=== PATIENT | male | born 1970 | race Caucasian/White ===

== ENCOUNTER → 2016-10-08 | Outpatient (CLI) | payer BC ==
[2016-10-08 20:04] LABS: Basophils # (A) 0.1 k/uL (0-0.2); Basophils % (A) 2 %; CH 29.3; CHCM 34.5; Eosinophils # (A) 0.1 k/uL (0-0.7); Eosinophils % (A) 1 %; HCT 48.6 % (39.0-53.0); HDW 2.62; HGB 16.2 gm/dL (13.0-17.5); Luc # (Auto) 0.06; Luc % (Auto) 1; Lymphocytes # (A) 1.9 k/uL (1.0-4.8); Lymphocytes % (A) 31 %; MCH 28.4 pg (25.0-35.0); MCHC 33.3 g/dL (31.0-37.0); MCV 85.3 fL (80.0-100.0); Monocytes # (A) 0.4 k/uL (0-1.0); Monocytes % (A) 7 %; Neutrophils # (A) 3.7 k/uL (1.3-7.7); Neutrophils % (A) 59 %; RDW 12.2 % (11.5-15.5); WBC 6.3 k/uL (3.8-10.6); WBC (Perox) 6.33
[2016-10-08 20:09] LABS: ALT 59 U/L (21-72); AST 29 U/L (17-59); Alkaline Phosphatase 112 U/L (38-126); Anion Gap 12 mmol/L; Blood Urea Nitrogen 15 mg/dL (9-20); Calcium 10.1 mg/dL (8.4-10.2); Carbon Dioxide 24 mmol/L (22-30); Chloride 106 mmol/L (98-107); Glucose 90 mg/dL (74-99); Non-African American GFR(MDRD) >60 (>60 ml/min/1.73 sqM); Potassium 4.2 mmol/L (3.5-5.1); Sodium 142 mmol/L (137-145); Total Bilirubin 0.6 mg/dL (0.2-1.3); Total Protein 7.4 g/dL (6.3-8.2)
== END | disposition home or self-care (01) ==
LOC: MMGSC 14:27
PROVIDERS: ATTEND Family Medicine
DX: R53.83 Other fatigue (principal); R07.9 Chest pain, unspecified
CPT/HCPCS: 36415; 80053; 84439; 84443; 85025; 85379

== ENCOUNTER 2018-12-12 10:20 | Emergency (ER) | payer BC ==
[2018-12-12 10:29] VITALS: BP 131/84; PULSE 66; RESP 18; TEMP 98
--- NOTE | 2018-12-12 10:48 | ED ---
Lower Extremity Injury HPI - General Chief Complaint: Extremity Injury, Lower Stated Complaint: slip & fall/leg pain Time Seen by Provider: 12/12/18 10:33 Source: patient Mode of arrival: ambulatory Limitations: no limitations - History of Present Illness Initial Comments: 48-year-old male presenting today for chief complaint of left knee ankle and foot pain. Patient states that he slipped on ice yesterday with his left lower extremity under his body. Patient states he twisted it inward. Patient denies a dislocation. Patient states he noted pain at the knee, he states it felt similar to when he had a meniscus injury in the past. He states he went home and was able to ambulate without difficulty. He attempted to ice and elevate area however when pain persisted this morning he presented for evaluation. Upon arrival patient is ambulatory, he denies any numbness tingling or loss sensation: Was or pallor of the extremity. Patient denies hitting his head loss of consciousness or injury to the neck or back. Remaining review of systems negative, patient denies any recent fever, chills, shortness of breath, chest pain, back pain, abdominal pain, nausea or vomiting, numbness or tingling, dysuria or hematuria, constipation or diarrhea, headaches or visual changes, or any other complaints. upon arrival patient appears well, VS within acceptable limits. - Related Data Home Medications Medication Instructions Recorded Confirmed Loratadine [Claritin] 10 mg PO DAILY 12/21/15 12/12/18 Omeprazole [PriLOSEC] 20 mg PO AC-BRKFST 12/21/15 12/12/18 Allergies Allergy/AdvReac Type Severity Reaction Status Date / Time No Known Allergies Allergy Verified 12/12/18 10:44 Review of Systems ROS Statement: Those systems with pertinent positive or pertinent negative responses have been documented in the HPI. ROS Other: All systems not noted in ROS Statement are negative. Past Medical History Past Medical History: GERD/Reflux Additional Past Medical History / Comment(s): back pain, seasonal ALLERGIES History of Any Multi-Drug Resistant Organisms: None Reported Past Surgical History: Orthopedic Surgery Additional Past Surgical History / Comment(s): Right knee arthroscopic meniscus tear repair, tendon repair right ankle Past Psychological History: No Psychological Hx Reported Smoking Status: Never smoker Past Alcohol Use History: None Reported Past Drug Use History: None Reported - Past Family History Father Additional Family Medical History / Comment(s): Father is alive at age 85 with history of 3 myocardial infarctions in the past 20 years and chronic kidney problems. Mother Additional Family Medical History / Comment(s): Mother is alive at age 80 with history of neuropathy. No coronary artery disease history. Brother(s) Additional Family Medical History / Comment(s): He has 2 brothers and 2 sisters with no major medical problems. Patient has 2 children with no major medical problems. General Exam - General Exam Comments Initial Comments: General: The patient is awake and alert, in no distress, and does not appear acutely ill. Eye: +3 mm pupils are equal, round and reactive to light, extra-ocular movements are intact. No nystagmus. There is normal conjunctiva bilaterally. No signs of icterus. Ears, nose, mouth and throat: There are moist mucous membranes and no oral lesions. Neck: The neck is supple, there is no tenderness or JVD. Cardiovascular: There is a regular rate and rhythm. No murmur, rub or gallop is appreciated. Respiratory: Lungs are clear to auscultation, respirations are non-labored, breath sounds are equal. No wheezes, stridor, rales, or rhonchi. Gastrointestinal: Soft, non-distended, non-tender abdomen without masses or organomegaly noted. There is no rebound or guarding present. Musculoskeletal: Upon inspection of the lower extremities there is no soft tissue swelling or ecchymosis abrasions of the knees. There are equal comparison. No point tenderness on examination. Patient is able to fully range at the knees and ankles and hips bilaterally equal in comparison. Patient does admit to tenderness with range of motion at the right knee and ankle. Patient is tender over the lateral malleolus. No obvious soft tissue swelling no deformity. Strength 5/5 of the LE including affected joints. Sensation intact of the LE equal in comparison b/l. Radial and DP pulses equal bilaterally 2+. Capillary refilll < 2 seconds. No evidence of foot drop. Especially the left wrist reveals no abnormality. Patient able to fully range including supination and pronation. No point localized tenderness to palpation. No wrist drop- ulnar median and radial nerve appear intact. Neurological: A&O x 3. CN II-XII intact, There are no obvious motor or sensory deficits. Coordination appears grossly intact. Speech is normal. Skin: Skin is warm and dry and no rashes or lesions are noted. Psychiatric: Cooperative, appropriate mood & affect, normal judgment. Limitations: no limitations Course Vital Signs 12/12/18 10:27 Temperature 98 F Pulse Rate 66 Respiratory 18 Rate Blood Pressure 131/84 O2 Sat by Pulse 99 Oximetry Medical Decision Making - Medical Decision Making Imaging studies reveal no acute osseous injury. I do suspicion for possible left meniscus injury. Patient has no stated skin soft tissue swelling or abnormal physical examination findings of the ankle- feel most likely sprain. Patient has no tenderness over Lis Franc region, (-)XR. No ecchymosis of forefoot or plantar surface. Patient will be placed in knee immobilizer. Patient is to follow-up with established orthopedic care with Dr. Krishnamurthy. Patient is aware of return parameters denies questions at this time. Patient given ibuprofen for pain management and discharged in stable condition after discussing case and reviewing imaging studies attending provider Dr. Mccord. Disposition Clinical Impression: Fall due to ice or snow, Knee pain, Ankle pain Disposition: HOME SELF-CARE Condition: Good Instructions (If sedation given, give patient instructions): Ankle Sprain (ED), Knee Sprain (ED) Additional Instructions: Please use medication as discussed. Please follow-up with family doctor in the next 2 days, please follow up with Dr. Krishnamurthy in next week. Please return to emergency room if the symptoms increase or worsen or for any other concerns. Is patient prescribed a controlled substance at d/c from ED?: No Referrals: Apple Cifuentes MD [Primary Care Provider] - 1-2 days Jean Krishnamurthy MD [STAFF PHYSICIAN] - 1-2 days Time of Disposition: 11:13
--- NOTE | 2018-12-12 11:08 | XR ---
Left foot and left ankle HISTORY: Trauma and pain 3 views of the left ankle and 3 views of the left foot Bone mineralization, joint spaces and alignment are maintained. Soft tissue calcifications are likely vascular. IMPRESSION: No fracture or dislocation.
--- NOTE | 2018-12-12 11:09 | XR ---
Left knee HISTORY: Trauma and pain 3 views of the left knee Bone mineralization, joint spaces and alignment are maintained. No joint effusion. IMPRESSION: No fracture or dislocation.
[2018-12-12] MEDS ORDERED: IBUPROFEN 600 MG TAB PO STA (11:18)
== END 2018-12-12 11:43 | disposition home or self-care (01) ==
LOC: EC 10:20
DX: M25.562 Pain in left knee (principal); M25.572 Pain in left ankle and joints of left foot; M79.672 Pain in left foot; K21.9 Gastro-esophageal reflux disease without esophagitis; Z91.09 Other allergy status, other than to drugs and biological substances; Z79.899 Other long term (current) drug therapy; Z87.828 Personal history of other (healed) physical injury and trauma; Z98.890 Other specified postprocedural states; W00.0XXA Fall on same level due to ice and snow, initial encounter
CPT/HCPCS: 99283; 73562; 73610; 73630; L1830

== ENCOUNTER → 2019-04-18 | Outpatient (CLI) | payer OTHER ==
--- NOTE | 2019-04-18 13:34 | XR ---
Mandible HISTORY: Trauma and pain 5 views of the mandible Bone mineralization, joint spaces, alignment are maintained. IMPRESSION: No fracture or dislocation. Follow-up as indicated.
== END | disposition home or self-care (01) ==
LOC: RADXRMAIN 13:00
PROVIDERS: ATTEND Emergency Medicine
DX: S00.83XA Contusion of other part of head, initial encounter (principal)
CPT/HCPCS: 70110

== ENCOUNTER → 2021-04-18 | Outpatient (CLI) | payer BC ==
--- NOTE | 2021-04-19 05:22 | MR ---
EXAMINATION TYPE: MR cervical spine wo con DATE OF EXAM: 04/18/2021 COMPARISON: None HISTORY: Neck, left shoulder, and left arm pain for 1 month. Cervical vertebra have normal alignment. There is degenerative disc space nor in from C4 to C7 with s purring of the endplates. There are small posterior disc herniations at C5-4-5 and C5-6 and C6-7. The re is developmentally adequate spinal canal. The canal measures 7.5 mm at C5-6 which is the narrowest point. Cervical spinal cord has normal signal pattern. There is no edema. Brainstem appears intact. There is no evidence of cervical paraspinal mass. There is mild flattening of the spinal cord at C5-6 level. Disc herniation at C4-5 is on the left side and effacing the spinal cord. C5-6 disc herniatio n is in the midline with mild effacement of the cord. There is no significant deformity of the cord a t C6-7. IMPRESSION: Spondylotic changes with posterior multilevel cervical disc herniation. C4-5 disc herniation is on th e left side and could be clinically significant in this patient with left side pain.
== END | disposition home or self-care (01) ==
LOC: RADMRIMAIN 16:07
PROVIDERS: ATTEND Family Medicine
DX: M50.221 Other cervical disc displacement at C4-C5 level (principal); M47.812 Spondylosis without myelopathy or radiculopathy, cervical region
CPT/HCPCS: 72141

== ENCOUNTER 2021-07-16 10:23 | Day surgery (SDC) | payer BC ==
[2021-07-15 11:54] VITALS: BMI 26.9
[2021-07-16 11:00] VITALS: TEMP 97.7
[2021-07-16] MEDS ORDERED: LACTATED RINGERS 1,000 ML IV ONE (11:03)
[2021-07-16] MEDS ORDERED: fentaNYL (PF) 50 MCG/ML 2 ML AMP ONE (11:12)
[2021-07-16] MEDS ORDERED: IOPAMIDOL M200 10 ML VIAL ONE (11:12)
[2021-07-16] MEDS ORDERED: DEXAMETHASONE SOD PHOSPHATE 10 MG/ML 1 ML VIAL ONE (11:12)
[2021-07-16] MEDS ORDERED: MIDAZOLAM 2 MG/2 ML VIAL ONE (11:12)
--- NOTE | 2021-07-16 11:36 | P.PCN ---
Date of Procedure: 07/16/21 Description of Procedure: Pre- and Post-operative Diagnosis: Cervical degenerative disc disease, and a cervical spondylosis without myelopathy Procedure: C5-C6 Inter-Laminar Cervical Epidural Steroid Injection under biplanar fluoroscopy #1 Surgeon: Bobby Brown Anesthesia: Local: 1% Lidocaine, IV sedation : Versed and fentanyl. Complications: None. Estimated blood loss: None Specimens removed: None Fluoroscopic image: saved to electronic medical records. Indications for Procedure: The patient has been suffering from neck pain and pain radiating to the upper extremity sometimes . Inadequate pain control with pharmacologic regimen. An inter-laminar approach cervical epidural steroid injection was scheduled for the patient. Procedure and Findings: The patient was seen and examined in the holding area. The written informed consent was obtained after explaining the risks, benefits, alternatives of the procedure to the patient. The patient was brought to the procedure room and was placed in the prone position on the operating table. A pillow was placed under the upper chest. Standard anesthesia monitoring was done through out the procedure. Timeout was completed. The skin preparation was done with ChloraPrep 1 and draping was done in usual sterile fashion. Sterile technique was observed throughout the procedure. Under fluoroscopic guidance, the C5-C6 inter-laminar space was identified. 3 ml of 1% Lidocaine was injected with a 25 gauge needle to achieve adequate local anesthesia of the skin and subcutaneous tissue. A 20 gauge, 3.5 inch Tuohy type epidural needle was placed and gradually advanced up to the epidural space using loss of resistance technique and fluoroscopic guidance. Lateral, oblique fluoroscopic views confirm the needle position. No paresthesia was noted. A negative aspiration was confirmed and then 1 ml of Isovue-200 was injected. A good dye spread was seen in the epidural space and it was negative for any intrathecal, intraneural or intravascular spread. A total of 5 ml solution containing 20 mg Dexamethasone, and 3 ml preservative-free Normal Saline was injected slowly with intermittent aspiration. The needle was removed intact, area was cleaned and bandage was applied. Disposition : The patient tolerated the procedure very well. The patient was transferred to the recovery room and remained stable until discharged home. The patient was given detailed discharge instructions for bleeding, infection, increased pain at the injection site, and was advised to seek immediate medical attention should significant side effects develop. The patient will be followed up with our [facility] within 4 weeks for follow-up visit.
[2021-07-16] MEDS ORDERED: IV FLUID CONTINUATION 1,000 ML IV ONE (11:39)
[2021-07-16 11:43] VITALS: RESP 18
[2021-07-16] MEDS ORDERED: LACTATED RINGERS 1,000 ML IV SCH (11:45)
--- NOTE | 2021-07-16 11:47 | FL ---
EXAMINATION TYPE: FL guided pain mgmt statistic DATE OF EXAM: 07/16/2021 HISTORY: Fluoroscopy time 11 seconds of fluoroscopy provided. IMPRESSION: 1. Fluoroscopy time.
[2021-07-16 11:55] VITALS: BP 137/78; PULSE 78
== END 2021-07-16 12:11 | disposition home or self-care (01) ==
LOC: ORPAIN 10:23
DX: M47.22 Other spondylosis with radiculopathy, cervical region (principal); M50.13 Cervical disc disorder with radiculopathy, cervicothoracic region; M19.90 Unspecified osteoarthritis, unspecified site; Z98.890 Other specified postprocedural states
CPT/HCPCS: 62321; J2250; J1100; J3010; Q9966; 99152